=== PATIENT | female | born 1960 | race Caucasian/White ===

== ENCOUNTER 2024-03-28 03:29 | Emergency (ER) | payer BC ==
[~2024-03-28] VITALS: Ht 154.9 cm; Wt 81.2 kg
[2024-03-28 03:50] VITALS: BP_SYST 147; PULSE 69; RESP 20; TEMP 98; O2SAT 98
[2024-03-28] MEDS ORDERED: methylPREDNISolone SOD SUCC/PF 62.5 MG/ML VIAL ONE (04:06)
[2024-03-28] MEDS: methylPREDNISolone SOD SUCC/PF 62.5 MG/ML VIAL IM ONE (04:12)
[2024-03-28] MEDS: DIPHENHYDRAMINE INJ 50 MG/ML VIAL IM ONE (04:12)
[2024-03-28] MEDS: methylPREDNISolone ACETATE 80 MG/ML IM ONE (04:39)
[2024-03-28] MEDS: EPINEPHRINE HCL/PF 1 MG/ML AMP SUBCUT ONE (05:06)
[2024-03-28] MEDS: ONDANSETRON 4 MG ODT TAB PO ONE (05:07)
[2024-03-28] MEDS: LORazepam 1 MG TABLET PO ONE (05:32)
[2024-03-28] MEDS ORDERED: MONT-40 PO (05:58)
[2024-03-28] MEDS ORDERED: METH-776 PO (05:58)
[2024-03-28 06:05] VITALS: BP_SYST 109; PULSE 68; RESP 20; TEMP 97.4; O2SAT 99
== END 2024-03-28 06:05 | disposition home or self-care (01) ==
LOC: SED 03:29
DX: L29.9 Pruritus, unspecified (principal); T78.1XXA Other adverse food reactions, not elsewhere classified, initial encounter; Z91.040 Latex allergy status; Z79.899 Other long term (current) drug therapy; Z79.2 Long term (current) use of antibiotics; X58.XXXA Exposure to other specified factors, initial encounter
CPT/HCPCS: 99284; 96372; Q0162; J1200; J0171; J2930

== ENCOUNTER 2024-04-25 01:07 | Emergency (ER) | payer BC ==
[~2024-04-25] VITALS: Ht 152.4 cm; Wt 127.0 kg
[~2024-04-25 01:07] MED LIST: METH-776 PO; MONT-40 PO
[2024-04-25 01:21] VITALS: BP_SYST 127; PULSE 79; RESP 18; TEMP 98.1; O2SAT 97
[2024-04-25] MEDS ORDERED: ONDA-8 TL (02:02)
[2024-04-25] MEDS ORDERED: PRED20TA PO (02:02)
[2024-04-25] MEDS ORDERED: CLOB50SO2 TP (02:02)
[2024-04-25] MEDS ORDERED: LORA10TA7 PO (02:02)
[2024-04-25] MEDS: predniSONE 20 MG TABLET PO ONE (02:05)
[2024-04-25] MEDS: LORATADINE 10 MG TABLET PO ONE (02:05)
[2024-04-25 02:17] VITALS: BP_SYST 117; PULSE 66; RESP 20; O2SAT 99
== END 2024-04-25 02:15 | disposition home or self-care (01) ==
LOC: SED 01:07
DX: L29.9 Pruritus, unspecified (principal); R11.0 Nausea; I10 Essential (primary) hypertension; Z88.2 Allergy status to sulfonamides; Z91.040 Latex allergy status; Z79.52 Long term (current) use of systemic steroids; Z79.899 Other long term (current) drug therapy
CPT/HCPCS: 99283; J7512